=== PATIENT | female | born 1955 | race Caucasian/White ===

== ENCOUNTER 2024-03-11 14:42 | Observation (INO) ==
--- NOTE | 2024-03-11 15:07 | DR.AMS ---
HPI Time Seen Time Seen by Provider: 03/11/24 15:02 PCP Primary Care Physician: Terry Complaint Cheif Complaint Doctors Comments: 60-year-old female sent in by EMS for evaluation. Family told EMS that he has been falling a lot, has been confused recently. Patient is pleasant, in no distress. She does recall falling, has bruising and pain of her right hip/thigh region. Denies headache, visual changes, sinus congestion or sore throat. Denies head injury, neck pain or back pain. Has had a slight cough, nonproductive.. No reported fevers or chills.. She denies nausea, vomiting, abdominal pain, constipation, diarrhea or urinary issues. Right lower extremity has been a bit swollen. Patient does not know why she falls. Patient is on chronic narcotic therapy, recently had her strength increased from 7.5 to 10 mg of hydrocodone. Chief Complaint:: Patient's family called EMS due to the patient falling and being disoriented. The patient states that she is here due to falling, and is noted to be slurring during the triage. She states that she hurts on her right side and rates the pain a 10/10. The patient also states that she has been falling frequently at home recently. COVID-19 Coronavirus risk:travel/contact w/high risk person: No Has patient experienced Coronavirus symptoms: No Reviewed Nurses Notes Reviewed: Yes Source History Provided: Patient and EMS Mode of Arrival Mode of Arrival: Stretcher Timing Onset of Chief Complaint: 03/11/24 PMH PMH Past Medical History: Yes Past Medical History: Anxiety, COPD, Depression, Diabetes and Hypertension Past Surgical History: Yes Surgical History: Ortho Surgery and Other Past Surgical History Comment: Spinal surger Family History History of Family Medical Conditions: Yes Family Medical History: Diabetes Mellitus, Cancer, [place], Heart Failure and Hypertension Social History Does patient currently use any type of tobacco product: Yes Have you used tobacco products in the last 12 months: Yes Type of Tobacco Use: Cigarettes Does any household member use tobacco: Yes Alcohol Use: None Do you use any recreational Drugs:: No Lives With: Family Lives Where: Home Travel Risk Coronavirus risk:travel/contact w/high risk person: No Has patient experienced Coronavirus symptoms: No Infectious screening In the last 2 months have you had wt loss of >10#?: NO Have you had fever, night sweats or hemotysis?: No Have you traveled outside the country in the last 6 months?: No Isolation: Standard ROS Review of Systems Constitutional: Weakness Eyes: No Symptoms Reported ENTM: No Symptoms Reported Respiratoy: Non-Productive Cough Cardiovascular: No Symptoms Reported Gastrointestinal/Abdominal: No Symptoms Reported Genitourinary: No Symptoms Reported Neurological: Weakness Musculoskeletal: Hip (Right) Integumentary: No Symptoms Reported Hematologic/Lymphatic: No Symptoms Reported Psychiatric: No Symptoms Reported All Other Systems: Reviewed and Negative PE Vitals Vital Signs: Temp Pulse Resp BP Pulse Ox O2 Del Method 03/11/24 15:15 52 L 92 L 03/11/24 15:01 146/65 03/11/24 15:01 53 L 96 03/11/24 15:00 51 L 98 03/11/24 14:49 55 L 96 03/11/24 14:49 157/72 03/11/24 14:49 157/72 03/11/24 14:46 56 L 93 L 03/11/24 14:52 98.2 F 52 L 18 157/72 96 Room Air General General Appearance: Alert and In No Apparent Distress Head Head Exam: Normal Inspection, Atraumatic and Normocephalic Eyes Eye exam: PERRL and EOMI ENT ENT Exam: Normal Oropharynx and Mucous Membranes Moist Neck Neck Exam: Normal Inspection and Full ROM; negative Tenderness Respiratory Respiratory Exam: Normal Lung Sounds Bilat; negative Accessory Muscle Use or Respiratory Distress Cardiovascular Cardiovascular Exam: Regular Rate, Normal Rhythm and Normal Heart Sounds Abdominal Exam Abdominal Exam: Normal Bowel Sounds and Soft; negative Tenderness Extremities Extremities Exam: Edema (RLE - 3+, LLE - 1-2+) Neurological Neurological Exam: Alert and CN II-XII Intact; negative Motor Sensory Deficit Psychological Psychiatric Exam: Normal Affect Skin Skin Exam: Warm, Dry and Other (+ ecchymoses of R hip/posterior lateral R proximal thigh) COURSE Treatment Treatment: 60-year-old female with frequent falls and increased confusion over the past several days. Workup initiated. Patient given IV fluids. 1622 -labs show patient to have UTI on urinalysis, has 30-50 white blood cells per high- power field, positive for nitrites and leukocyte Estrace. Patient given IV Rocephin. Imaging studies unremarkable-no acute abnormalities on brain CT, chest x-ray or right hip x-ray. Has degree of anemia, 7.2 hemoglobin. Rest the chemistries are acceptable. Negative troponin, negative CK. Discussed with her primary care provider, Dr. Johnson, he accepts observation admission for treatment of acute UTI and observation of her mental status changes. ROR Labs Reviewed Laboratory Results Reviewed?: Yes 03/11/24 15:30 03/11/24 15:30 Laboratory: WBC 8.4 X10^3/uL (3.6-10.0) 03/11/24 15:30 RBC 2.95 X10^6/uL (3.5-5.4) L 03/11/24 15:30 Hgb 7.2 g/dL (12.0-16.0) L 03/11/24 15: Hct 23.4 % (36.0-47.0) L 03/11/24 15:30 MCV 79.4 fL (80.0-100.0) L 03/11/24 15:30 MCH 24.5 pg (27.0-34.0) L 03/11/24 15: MCHC 30.9 g/dL (33.0-35.0) L 03/11/24 15:30 RDW 19.0 % (11.6-16.5) H 03/11/24 15:30 Plt Count 268 X10^3/uL (150.0-450.0) 03/11/24 15:30 MPV 7.8 fL (7.4-11.0) 03/11/24 15:30 Neut % (Auto) 44.0 % (42.0-75.0) 03/11/24 15:30 Lymph % (Auto) 34.8 % (21.0-51.0) 03/11/24 15:30 [place] % (Auto) 9.5 % (0.0-13.0) 03/11/24 15:30 Eos % (Auto) 10.9 % (0.9-2.9) H 03/11/24 15:30 Baso % (Auto) 0.8 % (0.2-1.0) 03/11/24 15:30 Neut # (Auto) 3.7 x10^3/uL (2.2-4.8) 03/11/24 15:30 Lymph # (Auto) 2.9 X10^3/uL (1.3-2.9) 03/11/24 15:30 [place] # (Auto) 0.8 x10^3/uL (0.3-0.8) 03/11/24 15:30 Eos # (Auto) 0.9 x10^3/uL (0.0-0.2) H 03/11/24 15:30 Baso # (Auto) 0.1 X10^3/uL (0.0-0.1) 03/11/24 15:30 Absolute Nucleated RBC 0.0 /100WBC 03/11/24 15:30 Sodium 140 mmol/L (136-145) 03/11/24 15:30 Corrected Sodium TNP 03/11/24 15:30 Potassium 3.7 mmol/L (3.5-5.1) 03/11/24 15:30 Chloride 105 mmol/L (98-107) 03/11/24 15:30 Carbon Dioxide 33.2 mmol/L (21-32) H 03/11/24 15:30 BUN 27 mg/dL (7-18) H 03/11/24 15:30 Creatinine 1.41 mg/dL (0.55-1.02) H 03/11/24 15:30 Est GFR (MDRD) Af Amer 48 (>60) L 03/11/24 15:30 Est GFR (MDRD) Non-Af 39 (>60) L 03/11/24 15:30 Glucose 76 mg/dL (65-99) 03/11/24 15:30 Calcium 8.1 mg/dL (8.5-10.1) L 03/11/24 15:30 Corrected Calcium 9.4 mg/dL (8.5-10.1) 03/11/24 15:30 Total Bilirubin 0.20 mg/dL (0.2-1.0) 03/11/24 15:30 AST 23 Units/L (15-37) 03/11/24 15:30 ALT 19 Units/L (12-78) 03/11/24 15:30 Alkaline Phosphatase 106 Units/L (46-116) 03/11/24 15:30 Creatine Kinase 101 Units/L (26-192) 03/11/24 15:30 Troponin I High Sens 12.8 ng/L (4.0-60.0) 03/11/24 15: Total Protein 6.4 g/dL (6.4-8.2) 03/11/24 15: Albumin 2.4 g/dL (3.4-5.0) L 03/11/24 15: Globulin 4.0 g/dL (2.5-4.5) 03/11/24 15: Albumin/Globulin Ratio 0.6 Ratio (1.1-2.1) L 03/11/24:30 Lipase 24 Units/L (16-77) 03/11/24 15: TSH 3rd Generation 1.827 uIU/mL (0.358-3.74) 03/11/24 15: Specimen Type Catherized urine 03/11/24: Urine Color Yellow (YELLOW) 03/11/24 15: Urine Appearance Hazy (CLEAR) 03/11/24: Urine pH 6.0 (5.0 - 8.0) 03/11/24: Ur Specific [place] 1.015 (1.000-1.030) 03/11/24 15: Urine Protein 2+ (NEGATIVE) 03/11/24: Urine Glucose (UA) Negative (NEGATIVE) 03/11/24: Urine Ketones Negative (NEGATIVE) 03/11/24: Urine Blood 1+ (NEGATIVE) 03/11/24: Urine Nitrite Positive (NEGATIVE) 03/11/24: Urine Bilirubin Negative (NEGATIVE) 03/11/24: Urine Urobilinogen Normal (NORMAL) 03/11/24: Ur Leukocyte Esterase 1+ (NEGATIVE) 03/11/24: Urine RBC 3-5 /HPF (0-3) A 03/11/24 15: Urine WBC 30-50 /HPF (0-5) A 03/11/24: Ur Squamous Epith Cells Few /HPF (NEGATIVE) 03/11/24: Urine Bacteria 3+ /HPF (NEGATIVE) 03/11/24: Ur Culture Indicated? Yes/culture set up 03/11/24: Urine Opiates Screen Positive (NEG=<300) A 03/11/24: Urine Methadone Screen Negative (NEG=<300) 03/11/24 15:29 Ur Barbiturates Screen Negative (NEG=<200) 03/11/24 15:29 Ur Phencyclidine Scrn Negative (NEG=<25) 03/11/24 15:29 Ur Amphetamines Screen Negative (NEG=<1000) 03/11/24 15:29 U Benzodiazepines Scrn Negative (NEG=<200) 03/11/24 15:29 Urine Cocaine Screen Negative (NEG=<300) 03/11/24 15:29 U Marijuana (THC) Screen Negative (NEG=<50) 03/11/24 15:29 + anemia, + UTI XRAY XRAY Interpreted by: Both X-ray Results: EXAM: HIP, RIGHT HISTORY: FALL, PAIN; COMPARISON: Prior study or studies were utilized for comparison with the most relevant dated 09/05/2022 TECHNIQUE: 3 view(s) FINDINGS: The pelvic rings are intact. The pubic symphysis is not widened. The SI joints are atraumatic. Visualized portions of the pelvic bones and proximal femurs are intact. No hip dislocation noted. No significant degenerative change. Soft tissues are unremarkable. IMPRESSION: 1. No acute fracture or dislocation THIS IS AN ELECTRONICALLY VERIFIED FINAL REPORT 03/11/2024 4:16 PM - Electronically signed by Rene Cueva MD EXAM: CHEST, 1 VIEW HISTORY: AMS; COMPARISON: No relevant prior studies were available for comparison at the time of interpretation. TECHNIQUE: CHEST, 1 VIEW FINDINGS: Chest: Lines and tubes: Cardiac leads overlie the chest. Mediastinum: Cardiomegaly. Pulmonary vessels: There is pulmonary vascular congestion. Lung elmore: No suspicious airspace opacity. Pleura: No effusion. No pneumothorax. Bones and soft tissues: No acute osseous or soft tissue abnormality. IMPRESSION: 1. No acute cardiopulmonary abnormality THIS IS AN ELECTRONICALLY VERIFIED FINAL REPORT 03/11/2024 4:12 PM - Electronically signed by Rene Cueva MD EXAM: BRAIN W/O CON HISTORY: AMS; COMPARISON: 12/29/2023 TECHNIQUE: Multiple axial images of the head were performed from the skullbase to the vertex using standard departmental protocol. Sagittal and coronal reformatted images were performed. Dose reduction techniques including Automated Exposure Control (AEC) and adjustment of mA and kV were utilized. FINDINGS: The sulci, cisterns and ventricles are age appropriate. Mild cortical atrophy compatible with patient's age. There is no evidence of acute territorial infarction, hemorrhage, mass, mass effect or midline shift. There are no abnormal intra-axial or extra-axial fluid collections. The visualized paranasal sinuses and mastoid air cells are predominantly clear. IMPRESSION: Mild cortical atrophy. No acute intracranial pathology THIS IS AN ELECTRONICALLY VERIFIED FINAL REPORT 03/11/2024 4:12 PM - Electronically signed by Christopher Breen MD Opioid Opioid Risk Tool Age (Randal box if 16-45): No History of Preadolescent Sexual Abuse: No Total: 0 Total Score Risk Category: Low Risk Copyright: [facility] predicting aberrant behaviors Discharge Plan Diagnosis Discharge Problem: Acute UTI, Altered mental status Discharge Plan Patient Disposition: ADMITTED INPATIENT Condition: Stable Prescriptions: No Action metoprolol succinate 50 mg tablet extended release 24 hr 50 mg PO QDAY Qty: 90 3RF levothyroxine 50 mcg tablet 50 mcg PO QDAY Qty: 90 3RF isosorbide mononitrate 30 mg tablet extended release 24 hr 30 mg PO QAM Qty: 90 3RF colchicine 0.6 mg tablet 0.6 mg PO QDAY Qty: 90 3RF gabapentin 800 mg tablet 800 mg PO TID Qty: 90 3RF famotidine 20 mg tablet 20 mg PO QDAY Qty: 90 6RF ropinirole 2 mg tablet 2 mg PO QPM Qty: 90 3RF hydrocodone-acetaminophen 10-325 mg tablet 1 tab PO Q6H MDD 4 tablets per 24 hours PRN (Reason: pain) 30 Days Qty: 120 0RF Rx Instructions: 120 tablets filled on 02/25/24 - 55 tablets noted in bottle cyclobenzaprine 10 mg tablet 10 mg PO QPM Qty: 30 11RF potassium chloride 10 mEq tablet extended release 10 meq PO QAM Qty: 90 11RF pantoprazole 40 mg tablet,delayed release (DR/EC) 40 mg PO QDAY Qty: 90 3RF losartan-hydrochlorothiazide 50-12.5 mg tablet 1 tab PO QDAY Qty: 30 3RF clonazepam 1 mg tablet 1 mg PO BID MDD 2 per 24 hours 30 Days Qty: 60 0RF fluoxetine 40 mg capsule 40 mg PO QDAY Qty: 90 3RF aspirin 81 mg tablet,chewable 81 mg PO QDAY Qty: 90 3RF solifenacin 5 mg tablet 5 mg PO QDAY Qty: 100 2RF glipizide 5 mg tablet 5 mg PO BID Qty: 180 11RF atorvastatin 20 mg tablet 20 mg PO QPM Qty: 90 3RF hydrochlorothiazide 25 mg tablet 25 mg PO QDAY insulin glargine [Lantus Solostar U-100 Insulin] 100 unit/mL (3 mL) insulin pen 20 unit SUBCUT QDAY Combivent Respimat 20-100 mcg/actuation mist 1 puff INHALATION QID Trelegy Ellipta 100-62.5-25 mcg blister with device 1 ea INHALATION QDAY allopurinol 100 mg tablet 100 mg PO DAILY Health Concerns: Post Hospitalization: new medications and changes needed to prevent readmission or further decline. Pt educated and given instructions on all concerns. Plan of Treatment: Continue with present treatment and follow up plan. Pt is to keep follow up appointment as instructed and take medications as ordered. Orders to Discharge Patient Discharge Orders: Transfer (Routine); Ordered 03/11/24 Ordered By: Sunil Cruz Follow ups/Referrals Follow ups/Referrals: Lester Stewart [Primary Care Provider] - 3 days
[2024-03-11] MEDS: NS 500 ML IV 500 ML IV ONE ×2 (15:17→17:43)
[2024-03-11 15:47] LABS: BASOPHILS # (AUTO) 0.1 X10^3/uL (0.0-0.1); BASOPHILS % (AUTO) 0.8 % (0.2-1.0); EOSINOPHILS # (AUTO) 0.9 x10^3/uL (0.0-0.2); EOSINOPHILS % (AUTO) 10.9 % (0.9-2.9); HEMATOCRIT 23.4 % (36.0-47.0); HEMOGLOBIN 7.2 g/dL (12.0-16.0); LYMPHOCYTES # (AUTO) 2.9 X10^3/uL (1.3-2.9); LYMPHOCYTES % (AUTO) 34.8 % (21.0-51.0); MEAN CORPUSCULAR HEMOGLOBIN 24.5 pg (27.0-34.0); MEAN CORPUSCULAR HGB CONC 30.9 g/dL (33.0-35.0); MEAN CORPUSCULAR VOLUME 79.4 fL (80.0-100.0); MEAN PLATELET VOLUME 7.8 fL (7.4-11.0); MONOCYTES # (AUTO) 0.8 x10^3/uL (0.3-0.8); MONOCYTES % (AUTO) 9.5 % (0.0-13.0); NEUTROPHILS # (AUTO) 3.7 x10^3/uL (2.2-4.8); PLATELET COUNT 268 X10^3/uL (150.0-450.0); RED BLOOD COUNT 2.95 X10^6/uL (3.5-5.4); WHITE BLOOD COUNT 8.4 X10^3/uL (3.6-10.0)
[2024-03-11 16:04] LABS: BILIRUBIN,URINE NEGATIVE (NEGATIVE); BLOOD/HEMOGLOBIN,URINE 1+ (NEGATIVE); GLUCOSE, URINE NEGATIVE (NEGATIVE); KETONES,URINE NEGATIVE (NEGATIVE); LEUKOCYTE ESTERASE ,URINE 1+ (NEGATIVE); NITRITES,URINE POSITIVE (NEGATIVE); PROTEIN,URINE 2+ (NEGATIVE); UROBILINOGEN,URINE NORMAL (NORMAL)
[2024-03-11 16:05] LABS: ALANINE AMINOTRANSFERASE 19 Units/L (12-78); ALBUMIN 2.4 g/dL (3.4-5.0); ALKALINE PHOSPHATASE 106 Units/L (46-116); ASPARTATE AMINO TRANSFERASE 23 Units/L (15-37); BLOOD UREA NITROGEN 27 mg/dL (7-18); CALCIUM 8.1 mg/dL (8.5-10.1); CARBON DIOXIDE 33.2 mmol/L (21-32); CHLORIDE 105 mmol/L (98-107); COR CA(FOR HYPOALB) 9.4 mg/dL (8.5-10.1); CREATINE KINASE 101 Units/L (26-192); CREATININE 1.41 mg/dL (0.55-1.02); GLUCOSE 76 mg/dL (65-99); LIPASE 24 Units/L (16-77); POTASSIUM 3.7 mmol/L (3.5-5.1); SODIUM 140 mmol/L (136-145); TOTAL PROTEIN 6.4 g/dL (6.4-8.2); TSH (3RD GENERATION) 1.827 uIU/mL (0.358-3.74); eGFR NON BLACK RACES 39 (>60)
--- NOTE | 2024-03-11 16:15 | RAD ---
EXAM: CHEST, 1 VIEW HISTORY: AMS; COMPARISON: No relevant prior studies were available for comparison at the time of interpretation. TECHNIQUE: CHEST, 1 VIEW FINDINGS: Chest: Lines and tubes: Cardiac leads overlie the chest. Mediastinum: Cardiomegaly. Pulmonary vessels: There is pulmonary vascular congestion. Lung elmore: No suspicious airspace opacity. Pleura: No effusion. No pneumothorax. Bones and soft tissues: No acute osseous or soft tissue abnormality. IMPRESSION: 1. No acute cardiopulmonary abnormality THIS IS AN ELECTRONICALLY VERIFIED FINAL REPORT 03/11/2024 4:12 PM - Electronically signed by Rene Cueva MD
--- NOTE | 2024-03-11 16:15 | CT ---
EXAM: BRAIN W/O CON HISTORY: AMS; COMPARISON: 12/29/2023 TECHNIQUE: Multiple axial images of the head were performed from the skullbase to the vertex using standard depa rtmental protocol. Sagittal and coronal reformatted images were performed. Dose reduction techniques including Automated Exposure Control (AEC) and adjustment of mA and kV were utilized. FINDINGS: The sulci, cisterns and ventricles are age appropriate. Mild cortical atrophy compatible with patien t's age. There is no evidence of acute territorial infarction, hemorrhage, mass, mass effect or midl ine shift. There are no abnormal intra-axial or extra-axial fluid collections. The visualized paranas al sinuses and mastoid air cells are predominantly clear. IMPRESSION: Mild cortical atrophy. No acute intracranial pathology THIS IS AN ELECTRONICALLY VERIFIED FINAL REPORT 03/11/2024 4:12 PM - Electronically signed by Christopher Breen MD
[2024-03-11 16:19] LABS: APPEARANCE,URINE HAZY (CLEAR); BACTERIA,URINE 3+ /HPF (NEGATIVE); COLOR,URINE YELLOW (YELLOW); SQUAMOUS EPITHELIAL CELL,UR FEW /HPF (NEGATIVE)
--- NOTE | 2024-03-11 16:20 | RAD ---
EXAM: HIP, RIGHT HISTORY: FALL, PAIN; COMPARISON: Prior study or studies were utilized for comparison with the most relevant dated 09/05/2022 TECHNIQUE: 3 view(s) FINDINGS: The pelvic rings are intact. The pubic symphysis is not widened. The SI joints are atraumatic. Visual ized portions of the pelvic bones and proximal femurs are intact. No hip dislocation noted. No signif icant degenerative change. Soft tissues are unremarkable. IMPRESSION: 1. No acute fracture or dislocation THIS IS AN ELECTRONICALLY VERIFIED FINAL REPORT 03/11/2024 4:16 PM - Electronically signed by Rene Cueva MD
[2024-03-11] MEDS: ROCEPHIN VIAL 1 GRAM IVP ONE (16:28)
[2024-03-11] MEDS ORDERED: PATIENT'S HOME MEDICATION (Ipratropium-Albuterol [Combivent Respimat] 20-100 mcg/actuation IN SCH (17:17)
[2024-03-11] MEDS: ROCEPHIN VIAL 1 GRAM ONE (17:43)
[2024-03-11] MEDS: CONSULT PHARMACY - POTASSIUM & MAGNESIUM XX SCH (17:44)
[2024-03-11] MEDS: ROCEPHIN VIAL 1 GRAM 1 G in NS 100 ML IV 100 ML IV SCH (17:44)
[2024-03-11 18:32] VITALS: BMI 50.8
[2024-03-11] MEDS ORDERED: PULMICORT NEB TX 0.5 MG NEB ONE (19:56)
[2024-03-11] MEDS ORDERED: DUONEB 0.5 MG/3 MG (3 mL) NEB ONE (19:56)
[2024-03-11] MEDS: LIPITOR TAB 20 MG PO SCH (20:31)
[2024-03-11] MEDS: KLOR-CON PO SCH (20:31)
[2024-03-11] MEDS: SNACK - Diabetic Appropriate PO SCH (20:31)
[2024-03-11] MEDS: DUONEB 0.5 MG/3 MG (3 mL) NEB SCH (20:49)
[2024-03-11] MEDS: PULMICORT NEB TX 0.5 MG NEB SCH (20:49)
[2024-03-11] MEDS ORDERED: ROPINIROLE 2 MG PO SCH (21:00)
[2024-03-11] MEDS: FLEXERIL TAB 10 MG PO SCH (21:16)
[2024-03-11] MEDS: REQUIP PO SCH (21:16)
[2024-03-11] MEDS: NEURONTIN CAP 400 MG PO SCH (21:21)
[2024-03-11] MEDS: MAG-OX TAB PO SCH (21:21)
[2024-03-11] MEDS: KLONOPIN TAB 1 MG PO SCH (21:52)
[2024-03-11] MEDS ORDERED: PATIENT'S HOME MEDICATION (Gabapentin 800 mg tablet) PO SCH (22:00)
[2024-03-12 06:15] LABS: ALANINE AMINOTRANSFERASE 18 Units/L (12-78); ALBUMIN 2.3 g/dL (3.4-5.0); ALKALINE PHOSPHATASE 104 Units/L (46-116); ASPARTATE AMINO TRANSFERASE 21 Units/L (15-37); BLOOD UREA NITROGEN 23 mg/dL (7-18); CALCIUM 7.9 mg/dL (8.5-10.1); CARBON DIOXIDE 32.6 mmol/L (21-32); CHLORIDE 106 mmol/L (98-107); COR CA(FOR HYPOALB) 9.3 mg/dL (8.5-10.1); CREATININE 1.19 mg/dL (0.55-1.02); GLUCOSE 94 mg/dL (65-99); POTASSIUM 4.1 mmol/L (3.5-5.1); SODIUM 144 mmol/L (136-145); TOTAL PROTEIN 6.2 g/dL (6.4-8.2); eGFR NON BLACK RACES 48 (>60)
[2024-03-12 06:17] LABS: PLATELET COUNT 239 X10^3/uL (150.0-450.0)
[2024-03-12 06:22] LABS: BASOPHILS # (AUTO) 0.1 X10^3/uL (0.0-0.1); BASOPHILS % (AUTO) 0.9 % (0.2-1.0); EOSINOPHILS # (AUTO) 0.8 x10^3/uL (0.0-0.2); EOSINOPHILS % (AUTO) 11.6 % (0.9-2.9); HEMATOCRIT 22.7 % (36.0-47.0); HEMOGLOBIN 7.2 g/dL (12.0-16.0); LYMPHOCYTES # (AUTO) 2.5 X10^3/uL (1.3-2.9); LYMPHOCYTES % (AUTO) 35.9 % (21.0-51.0); MEAN CORPUSCULAR HGB CONC 31.5 g/dL (33.0-35.0); MEAN CORPUSCULAR VOLUME 79.4 fL (80.0-100.0); MEAN PLATELET VOLUME 8.2 fL (7.4-11.0); MONOCYTES # (AUTO) 0.5 x10^3/uL (0.3-0.8); MONOCYTES % (AUTO) 7.2 % (0.0-13.0); NEUTROPHILS # (AUTO) 3.1 x10^3/uL (2.2-4.8); NEUTROPHILS % (AUTO) 44.4 % (42.0-75.0); RED BLOOD COUNT 2.86 X10^6/uL (3.5-5.4); RED CELL DISTRIBUTION WIDTH 19.3 % (11.6-16.5); WHITE BLOOD COUNT 7.1 X10^3/uL (3.6-10.0)
[2024-03-12] MEDS: GLUCOTROL PO SCH (06:39)
[2024-03-12] MEDS ORDERED: PATIENT'S HOME MEDICATION (Fluticasone-Umeclidin-Vilanter [Trelegy Ellipta] 100-62.5-25 mc IN SCH (09:00)
[2024-03-12] MEDS ORDERED: FLUOXETINE 40 MG PO SCH (09:00)
[2024-03-12] MEDS ORDERED: PATIENT'S HOME MEDICATION (Insulin Glargine [Lantus Solostar U-100 Insulin] 100 unit/mL (3 SUBCUT SCH (09:00)
[2024-03-12] MEDS ORDERED: PATIENT'S HOME MEDICATION (Solifenacin 5 mg tablet) PO SCH (09:00)
[2024-03-12] MEDS: COLCRYS TAB 0.6 MG PO SCH (09:32)
[2024-03-12] MEDS: MICRO K EXTEN CAP 10 MEQ PO SCH (09:32)
[2024-03-12] MEDS: HYZAAR 50/12.5 MG PO SCH (09:32)
[2024-03-12] MEDS: IMDUR PO SCH (09:32)
[2024-03-12] MEDS: TOPROL XL PO SCH (09:32)
[2024-03-12] MEDS: DETROL LA 2 MG CAP EXT REL PO SCH (09:33)
[2024-03-12] MEDS: HYDROCHLOROTHIAZIDE 25 MG TAB PO SCH (09:33)
[2024-03-12] MEDS: PEPCID TAB 20 MG PO SCH (09:33)
[2024-03-12] MEDS: SYNTHROID 50 mcg TAB PO SCH (09:33)
[2024-03-12] MEDS: ZYLOPRIM PO SCH (09:33)
[2024-03-12] MEDS: PROTONIX TAB 40 MG PO SCH (09:33)
[2024-03-12] MEDS: PROzac PO SCH (09:33)
[2024-03-12] MEDS: ASPIRIN 81 MG CHEWTAB PO SCH (09:33)
[2024-03-12] MEDS: LANTUS SC SCH (09:34)
[2024-03-12] MEDS: NS 250 ML IV 250 ML IV ONE (10:43)
--- NOTE | 2024-03-12 15:58 | DR.H&P ---
H&P History & Physical for Day of: H&P Date: 03/12/24 Chief Complaint Chief Complaint: Confusion Allergies Allergies Allergy/AdvReac Type Severity Reaction Status Date / Time lisinopril Allergy Unknown Verified 06/06/23 09:24 Penicillins Allergy Unknown Verified 06/06/23 09:24 tramadol Allergy Unknown Verified 06/06/23 09:24 History of Present Illness History of Present Illness: This is a 68-year-old white female well-known to me. She was brought to the [facility] emergency department after being confused yesterday. I also report that she has been having increased numbers of falls as rolling of the bed and falling on the floor a lot. She has multiple bruises and on her right hip and thigh regions. This is from her falls that she has been having. She also complains of sore throat and sinus congestion. Her sister said that she was confused all day yesterday however according to the ER physician and nurses she is conversing and speaking without any bad confusion. Patient does take chronic narcotics for pain and the EMS reports that she was slurring some when they were taking her to the emergency department. The patient did appear little bit somnolent in the emergency department but this could be from excessive pain medication. Workup revealed that she was mildly dehydrated and had a small urinary tract infection. She was started on IV Rocephin and we admitted her to the floor for slow IV hydration and antibiotic treatment with Rocephin for UTI. Past Medical History Past Medical History: Anxiety, COPD, Depression, Diabetes and Hypertension Past Surgical History Surgical History: Ortho Surgery and Other Family History Family Medical History: Coronary Artery Disease Social History Does patient currently use any type of tobacco product: Yes Have you used tobacco products in the last 12 months: Yes Type of Tobacco Use: Cigarettes Does any household member use tobacco: Yes Alcohol Use: None Medications Home Medications: Home Medications Medication Instructions Recorded Confirmed Type allopurinol 100 mg tablet 100 mg PO DAILY 03/11/24 03/11/24 History fluticasone fur. 100 mcg-umeclid 1 ea inhalation QDAY 03/11/24 03/11/24 History 62.5 mcg-vilant 25 mcg inhalat.powder (Trelegy Ellipta) hydrochlorothiazide 25 mg tablet 25 mg PO QDAY 03/11/24 03/11/24 History insulin glargine 100 unit/mL (3 20 unit subcut QDAY 03/11/24 03/11/24 History mL) subcutaneous pen (Lantus Solostar U-100 Insulin) ipratropium 20 mcg-albuterol 100 1 puff inhalation QID 03/11/24 03/11/24 History mcg/actuation mist for inhalation (Combivent Respimat) Labs 03/12/24 05:07 03/12/24 05:07 Labs: 03/11/24 15:29 Urine,Catheterized Urine Culture - Preliminary Laboratory WBC 7.1 X10^3/uL (3.6-10.0) 03/12/24 05:07 RBC 2.86 X10^6/uL (3.5-5.4) L 03/12/24 05:07 Hgb 7.2 g/dL (12.0-16.0) L 03/12/24 05:07 Hct 22.7 % (36.0-47.0) L 03/12/24 05:07 MCV 79.4 fL (80.0-100.0) L 03/12/24 05:07 MCH 25.0 pg (27.0-34.0) L 03/12/24 05:07 MCHC 31.5 g/dL (33.0-35.0) L 03/12/24 05:07 RDW 19.3 % (11.6-16.5) H 03/12/24 05:07 Plt Count 239 X10^3/uL (150.0-450.0) 03/12/24 05:07 MPV 8.2 fL (7.4-11.0) 03/12/24 05:07 Neut % (Auto) 44.4 % (42.0-75.0) 03/12/24 05:07 Lymph % (Auto) 35.9 % (21.0-51.0) 03/12/24 05:07 [place] % (Auto) 7.2 % (0.0-13.0) 03/12/24 05:07 Eos % (Auto) 11.6 % (0.9-2.9) H 03/12/24 05:07 Baso % (Auto) 0.9 % (0.2-1.0) 03/12/24 05:07 Neut # (Auto) 3.1 x10^3/uL (2.2-4.8) 03/12/24 05:07 Lymph # (Auto) 2.5 X10^3/uL (1.3-2.9) 03/12/24 05:07 [place] # (Auto) 0.5 x10^3/uL (0.3-0.8) 03/12/24 05:07 Eos # (Auto) 0.8 x10^3/uL (0.0-0.2) H 03/12/24 05:07 Baso # (Auto) 0.1 X10^3/uL (0.0-0.1) 03/12/24 05:07 Absolute Nucleated RBC 0.1 /100WBC 03/12/24 05:07 Sodium 144 mmol/L (136-145) 03/12/24 05:07 Corrected Sodium TNP 03/12/24 05:07 Potassium 4.1 mmol/L (3.5-5.1) 03/12/24 05:07 Chloride 106 mmol/L (98-107) 03/12/24 05:07 Carbon Dioxide 32.6 mmol/L (21-32) H 03/12/24 05:07 BUN 23 mg/dL (7-18) H 03/12/24 05:07 Creatinine 1.19 mg/dL (0.55-1.02) H 03/12/24 05:07 Est GFR (MDRD) Af Amer 58 (>60) L 03/12/24 05:07 Est GFR (MDRD) Non-Af 48 (>60) L 03/12/24 05:07 Glucose 94 mg/dL (65-99) 03/12/24 05:07 POC Glucose (mg/dL) 112 mg/dL (65-99) H 03/12/24 12:31 Calcium 7.9 mg/dL (8.5-10.1) L 03/12/24 05:07 Corrected Calcium 9.3 mg/dL (8.5-10.1) 03/12/24 05:07 Magnesium 2.0 mg/dL (2.0-2.9) 03/12/24 05:07 Total Bilirubin 0.20 mg/dL (0.2-1.0) 03/12/24 05:07 AST 21 Units/L (15-37) 03/12/24 05:07 ALT 18 Units/L (12-78) 03/12/24 05:07 Alkaline Phosphatase 104 Units/L (46-116) 03/12/24 05:07 Creatine Kinase 101 Units/L (26-192) 03/11/24 15:30 Troponin I High Sens 12.8 ng/L (4.0-60.0) 03/11/24 15:30 Total Protein 6.2 g/dL (6.4-8.2) L 03/12/24 05:07 Albumin 2.3 g/dL (3.4-5.0) L 03/12/24 05:07 Globulin 3.9 g/dL (2.5-4.5) 03/12/24 05:07 Albumin/Globulin Ratio 0.6 Ratio (1.1-2.1) L 03/12/24 05:07 Lipase 24 Units/L (16-77) 03/11/24 15:30 TSH 3rd Generation 1.827 uIU/mL (0.358-3.74) 03/11/24 15:30 Specimen Type Catherized urine 03/11/24 15:29 Urine Color Yellow (YELLOW) 03/11/24 15: Urine Appearance Hazy (CLEAR) 03/11/24 15: Urine pH 6.0 (5.0 - 8.0) 03/11/24 15:29 Ur Specific [place] 1.015 (1.000-1.030) 03/11/24 15: Urine Protein 2+ (NEGATIVE) 03/11/24 15: Urine Glucose (UA) Negative (NEGATIVE) 03/11/24 15: Urine Ketones Negative (NEGATIVE) 03/11/24 15: Urine Blood 1+ (NEGATIVE) 03/11/24 15: Urine Nitrite Positive (NEGATIVE) 03/11/24 15: Urine Bilirubin Negative (NEGATIVE) 03/11/24 15: Urine Urobilinogen Normal (NORMAL) 03/11/24 15:29 Ur Leukocyte Esterase 1+ (NEGATIVE) 03/11/24 15: Urine RBC 3-5 /HPF (0-3) A 03/11/24 15: Urine WBC 30-50 /HPF (0-5) A 03/11/24 15: Ur Squamous Epith Cells Few /HPF (NEGATIVE) 03/11/24 15:29 Urine Bacteria 3+ /HPF (NEGATIVE) 03/11/24 15:29 Ur Culture Indicated? Yes/culture set up 03/11/24 15: Urine Opiates Screen Positive (NEG=<300) A 03/11/24 15: Urine Methadone Screen Negative (NEG=<300) 03/11/24 15: Ur Barbiturates Screen Negative (NEG=<200) 03/11/24 15: Ur Phencyclidine Scrn Negative (NEG=<25) 03/11/24 15: Ur Amphetamines Screen Negative (NEG=<1000) 03/11/24 15: U Benzodiazepines Scrn Negative (NEG=<200) 03/11/24: Urine Cocaine Screen Negative (NEG=<300) 03/11/24 15: U Marijuana (THC) Screen Negative (NEG=<50) 03/11/24 15:29 Review of Systems Constitutional: Weakness Eyes: No Symptoms Reported ENT: No Symptoms Reported Respiratory: No Symptoms Reported Cardiovascular: No Symptoms Reported Gastrointestinal: No Symptoms Reported Genitourinary: Frequency Musculoskeletal: No Symptoms Reported Skin: No Symptoms Reported Neurological: No Symptoms Reported Physical Exam Vital Signs: Vital Signs Temperature 98.2 F Temperature 97.1 F Pulse Rate [Right Brachial] 58 Pulse Rate [Right Brachial] 56 Pulse Rate 63 Pulse Rate 52 Respiratory Rate 18 Respiratory Rate 20 Blood Pressure [Right Arm] 169/74 Blood Pressure [Right Arm] 143/66 O2 Sat by Pulse Oximetry 95 O2 Sat by Pulse Oximetry 95 O2 Sat by Pulse Oximetry 96 O2 Sat by Pulse Oximetry 94 Oriented: Normal, Time, Person and Place Eyes: Normal Ear: Normal Nose: Normal Throat: Normal Respiratory: Clear Throughout Cardiovascular: Normal : Normal Auscultation: Bowel Sounds: Normal Palpation: Normal Tenderness: Normal Skin: Normal Musculoskeletal: Normal Psychiatric: Normal Mood Description: Calm Affect: Normal Speech Pattern: Clear and Appropriate Assessment/Plan (1) Dehydration: Status: Acute Plan: Slow IV hydration. (2) Acute UTI: Status: Acute Plan: IV Rocephin. Follow-up with urine culture and sensitivity report when available. Change antibiotics accordingly if needed. (3) Altered mental status: Status: Acute Plan: Monitor for improvement with IV hydration and treatment of the urinary tract infection. CT of the head was negative. (4) Insulin dependent type 2 diabetes mellitus: Status: None Plan: Sliding scale regular insulin per protocol Review H&P Reviewed: Yes Patient was examined?: Yes
[2024-03-12] MEDS: NYSTATIN POWDER TOP SCH (21:27)
[2024-03-12] MEDS: NORCO 10/325 TAB PO PRN (23:20)
[2024-03-13 06:25] LABS: BASOPHILS # (AUTO) 0.1 X10^3/uL (0.0-0.1); BASOPHILS % (AUTO) 0.6 % (0.2-1.0); EOSINOPHILS # (AUTO) 0.8 x10^3/uL (0.0-0.2); EOSINOPHILS % (AUTO) 9.4 % (0.9-2.9); HEMATOCRIT 22.6 % (36.0-47.0); HEMOGLOBIN 7.1 g/dL (12.0-16.0); LYMPHOCYTES # (AUTO) 3.2 X10^3/uL (1.3-2.9); LYMPHOCYTES % (AUTO) 36.2 % (21.0-51.0); MEAN CORPUSCULAR HEMOGLOBIN 24.9 pg (27.0-34.0); MEAN CORPUSCULAR HGB CONC 31.3 g/dL (33.0-35.0); MEAN CORPUSCULAR VOLUME 79.5 fL (80.0-100.0); MEAN PLATELET VOLUME 8.3 fL (7.4-11.0); MONOCYTES # (AUTO) 0.5 x10^3/uL (0.3-0.8); MONOCYTES % (AUTO) 6.1 % (0.0-13.0); NEUTROPHILS # (AUTO) 4.2 x10^3/uL (2.2-4.8); NEUTROPHILS % (AUTO) 47.7 % (42.0-75.0); PLATELET COUNT 254 X10^3/uL (150.0-450.0); RED BLOOD COUNT 2.84 X10^6/uL (3.5-5.4); RED CELL DISTRIBUTION WIDTH 19.4 % (11.6-16.5); WHITE BLOOD COUNT 8.8 X10^3/uL (3.6-10.0)
[2024-03-13 06:26] LABS: ALANINE AMINOTRANSFERASE 21 Units/L (12-78); ALBUMIN 2.4 g/dL (3.4-5.0); ALKALINE PHOSPHATASE 107 Units/L (46-116); ASPARTATE AMINO TRANSFERASE 22 Units/L (15-37); BLOOD UREA NITROGEN 21 mg/dL (7-18); CARBON DIOXIDE 31.4 mmol/L (21-32); CHLORIDE 105 mmol/L (98-107); COR CA(FOR HYPOALB) 9.3 mg/dL (8.5-10.1); CREATININE 1.22 mg/dL (0.55-1.02); GLUCOSE 70 mg/dL (65-99); SODIUM 142 mmol/L (136-145); TOTAL PROTEIN 6.4 g/dL (6.4-8.2); eGFR NON BLACK RACES 47 (>60)
[2024-03-13] MEDS ORDERED: CONSULT PHARMACY - POTASSIUM & MAGNESIUM XX SCH (08:00)
[2024-03-13] MEDS: MAG-OX TAB PO ONE (10:51)
[2024-03-13] MEDS ORDERED: BENADRYL INJ 50 MG VIAL IVP ONE (13:18)
[2024-03-13] MEDS: TYLENOL 325 MG TAB PO PRN (13:30)
[2024-03-13] MEDS: TYLENOL 325 MG TAB PO ONE (13:30)
[2024-03-13] MEDS: BENADRYL INJ 50 MG VIAL IVP ONE (13:30)
[2024-03-13] MEDS: NICOTINE PATCH TD SCH (19:26)
[2024-03-13] MEDS: CHECK PATCH XX SCH (20:36)
[2024-03-13 21:29] LABS: HEMATOCRIT 28.4 % (36.0-47.0)
[2024-03-14] MEDS: NS 500 ML IV 500 ML IV ONE (01:18)
[2024-03-14 05:41] LABS: BASOPHILS % (AUTO) 0.6 % (0.2-1.0); EOSINOPHILS # (AUTO) 1.3 x10^3/uL (0.0-0.2); EOSINOPHILS % (AUTO) 16.3 % (0.9-2.9); HEMATOCRIT 26.2 % (36.0-47.0); HEMOGLOBIN 8.4 g/dL (12.0-16.0); LYMPHOCYTES # (AUTO) 1.8 X10^3/uL (1.3-2.9); LYMPHOCYTES % (AUTO) 22.3 % (21.0-51.0); MEAN CORPUSCULAR HEMOGLOBIN 25.6 pg (27.0-34.0); MEAN CORPUSCULAR HGB CONC 32.1 g/dL (33.0-35.0); MEAN CORPUSCULAR VOLUME 79.7 fL (80.0-100.0); MONOCYTES # (AUTO) 0.9 x10^3/uL (0.3-0.8); MONOCYTES % (AUTO) 10.4 % (0.0-13.0); NEUTROPHILS # (AUTO) 4.1 x10^3/uL (2.2-4.8); NEUTROPHILS % (AUTO) 50.4 % (42.0-75.0); PLATELET COUNT 227 X10^3/uL (150.0-450.0); RED BLOOD COUNT 3.28 X10^6/uL (3.5-5.4); RED CELL DISTRIBUTION WIDTH 18.8 % (11.6-16.5); WHITE BLOOD COUNT 8.2 X10^3/uL (3.6-10.0)
[2024-03-14 05:48] LABS: ALANINE AMINOTRANSFERASE 19 Units/L (12-78); ALBUMIN 2.4 g/dL (3.4-5.0); ALKALINE PHOSPHATASE 106 Units/L (46-116); ASPARTATE AMINO TRANSFERASE 20 Units/L (15-37); BLOOD UREA NITROGEN 20 mg/dL (7-18); CALCIUM 7.9 mg/dL (8.5-10.1); CARBON DIOXIDE 32.6 mmol/L (21-32); CHLORIDE 108 mmol/L (98-107); COR CA(FOR HYPOALB) 9.2 mg/dL (8.5-10.1); GLUCOSE 66 mg/dL (65-99); MAGNESIUM 2.1 mg/dL (2.0-2.9); POTASSIUM 4.7 mmol/L (3.5-5.1); SODIUM 143 mmol/L (136-145); TOTAL PROTEIN 6.2 g/dL (6.4-8.2); eGFR NON BLACK RACES 43 (>60)
--- NOTE | 2024-03-14 13:23 | PCM.PROG ---
Progress Note Progress Note for Day of Date of Exam: 03/13/24 Subjective Subjective: This morning the patient seems confused. I am asking her questions and she states that somebody else is in the room which has been talking to them with there is no one there. According to her sister she has been doing similar things at home. She does not appear acutely ill this morning but I do see that her hemoglobin is still low and is a little bit lower at 7.1. She has a UTI that is being treated as well. Today we will go ahead and give her 2 units of packed red blood cells and premedicated prior to infusion. We will plan on rechecking hemoglobin after the transfusion. Will follow-up with the urine culture and sensitivity when available and in the meantime continue her on IV Rocephin for her UTI. I will plan on keeping the patient in the hospital through the weekend to see if her altered mental status/hallucinations improve as we treat her urinary tract infection. Past Medical Family Social History Allergies: Allergies lisinopril Allergy (Unknown, Verified 06/06/23 09:24) Reason: Drug allergy Penicillins Allergy (Unknown, Verified 06/06/23 09:24) Reason: Drug allergy tramadol Allergy (Unknown, Verified 06/06/23 09:24) Reason: Drug allergy Review of Systems ROS: No change since H&P Vital Signs and I&O's Vital Signs: Vital Signs Temperature 97.6 F Temperature 97.9 F Pulse Rate [Right Brachial] 55 Pulse Rate [Right Brachial] 54 Respiratory Rate 20 Respiratory Rate 17 Respiratory Rate 17 Respiratory Rate 17 Blood Pressure [Left Arm] 144/70 Blood Pressure [Left Arm] 112/59 O2 Sat by Pulse Oximetry 99 O2 Sat by Pulse Oximetry 97 Intake and Output: Intake & Output 03/12/24 03/13/24 03/14/24 03/15/24 11:59 11:59 11:59 11:59 Intake Total 570 / 570 2079 1705 / 1705 Balance 570 / 570 2079 1705 / 1705 Physical Exam Oriented: Normal, Time, Person and Place Eyes: Normal Ear: Normal Nose: Normal Throat: Normal Respiratory: Normal Cardiovascular: Normal : Normal Auscultation: Bowel Sounds: Normal Tenderness: Normal Skin: Normal Musculoskeletal: Normal Psychiatric: Normal Mood Description: Calm Affect: Normal Speech Pattern: Clear and Appropriate Laboratory and Diagnostics 03/14/24 05:10 03/14/24 05:10 Labs: 03/11/24 15:29 Urine,Catheterized Urine Culture - Final Escherichia Coli Laboratory WBC 8.2 X10^3/uL (3.6-10.0) 03/14/24 05:10 RBC 3.28 X10^6/uL (3.5-5.4) L 03/14/24 05:10 Hgb 8.4 g/dL (12.0-16.0) L 03/14/24 05:10 Hct 26.2 % (36.0-47.0) L 03/14/24 05:10 MCV 79.7 fL (80.0-100.0) L 03/14/24 05:10 MCH 25.6 pg (27.0-34.0) L 03/14/24 05:10 MCHC 32.1 g/dL (33.0-35.0) L 03/14/24 05:10 RDW 18.8 % (11.6-16.5) H 03/14/24 05:10 Plt Count 227 X10^3/uL (150.0-450.0) 03/14/24 05:10 MPV 8.0 fL (7.4-11.0) 03/14/24 05:10 Neut % (Auto) 50.4 % (42.0-75.0) 03/14/24 05:10 Lymph % (Auto) 22.3 % (21.0-51.0) 03/14/24 05:10 [place] % (Auto) 10.4 % (0.0-13.0) 03/14/24 05:10 Eos % (Auto) 16.3 % (0.9-2.9) H 03/14/24 05:10 Baso % (Auto) 0.6 % (0.2-1.0) 03/14/24 05:10 Neut # (Auto) 4.1 x10^3/uL (2.2-4.8) 03/14/24 05:10 Lymph # (Auto) 1.8 X10^3/uL (1.3-2.9) 03/14/24 05:10 [place] # (Auto) 0.9 x10^3/uL (0.3-0.8) H 03/14/24 05:10 Eos # (Auto) 1.3 x10^3/uL (0.0-0.2) H 03/14/24 05:10 Baso # (Auto) 0.0 X10^3/uL (0.0-0.1) 03/14/24 05:10 Absolute Nucleated RBC 0.0 /100WBC 03/14/24 05:10 Sodium 143 mmol/L (136-145) 03/14/24 05:10 Corrected Sodium TNP 03/14/24 05:10 Potassium 4.7 mmol/L (3.5-5.1) 03/14/24 05:10 Chloride 108 mmol/L (98-107) H 03/14/24 05:10 Carbon Dioxide 32.6 mmol/L (21-32) H 03/14/24 05:10 BUN 20 mg/dL (7-18) H 03/14/24 05:10 Creatinine 1.30 mg/dL (0.55-1.02) H 03/14/24 05:10 Est GFR (MDRD) Af Amer 52 (>60) L 03/14/24 05:10 Est GFR (MDRD) Non-Af 43 (>60) L 03/14/24 05:10 Glucose 66 mg/dL (65-99) 03/14/24 05:10 POC Glucose (mg/dL) 82 mg/dL (65-99) 03/14/24 11:12 Calcium 7.9 mg/dL (8.5-10.1) L 03/14/24 05:10 Corrected Calcium 9.2 mg/dL (8.5-10.1) 03/14/24 05:10 Magnesium 2.1 mg/dL (2.0-2.9) 03/14/24 05:10 Total Bilirubin 0.40 mg/dL (0.2-1.0) 03/14/24 05:10 AST 20 Units/L (15-37) 03/14/24 05:10 ALT 19 Units/L (12-78) 03/14/24 05:10 Alkaline Phosphatase 106 Units/L (46-116) 03/14/24 05:10 Creatine Kinase 101 Units/L (26-192) 03/11/24 15:30 Troponin I High Sens 12.8 ng/L (4.0-60.0) 03/11/24 15: Total Protein 6.2 g/dL (6.4-8.2) L 03/14/24 05:10 Albumin 2.4 g/dL (3.4-5.0) L 03/14/24 05:10 Globulin 3.8 g/dL (2.5-4.5) 03/14/24 05:10 Albumin/Globulin Ratio 0.6 Ratio (1.1-2.1) L 03/14/24 05:10 Lipase 24 Units/L (16-77) 03/11/24 15: TSH 3rd Generation 1.827 uIU/mL (0.358-3.74) 03/11/24 15: Specimen Type Catherized urine 03/11/24 15: Urine Color Yellow (YELLOW) 03/11/24 15: Urine Appearance Hazy (CLEAR) 03/11/24 15: Urine pH 6.0 (5.0 - 8.0) 03/11/24: Ur Specific [place] 1.015 (1.000-1.030) 03/11/24 15: Urine Protein 2+ (NEGATIVE) 03/11/24: Urine Glucose (UA) Negative (NEGATIVE) 03/11/24: Urine Ketones Negative (NEGATIVE) 03/11/24: Urine Blood 1+ (NEGATIVE) 03/11/24: Urine Nitrite Positive (NEGATIVE) 03/11/24: Urine Bilirubin Negative (NEGATIVE) 03/11/24: Urine Urobilinogen Normal (NORMAL) 03/11/24: Ur Leukocyte Esterase 1+ (NEGATIVE) 03/11/24 15: Urine RBC 3-5 /HPF (0-3) A 03/11/24 15: Urine WBC 30-50 /HPF (0-5) A 03/11/24: Ur Squamous Epith Cells Few /HPF (NEGATIVE) 03/11/24: Urine Bacteria 3+ /HPF (NEGATIVE) 03/11/24: Ur Culture Indicated? Yes/culture set up 03/11/24 15: Urine Opiates Screen Positive (NEG=<300) A 03/11/24 15: Urine Methadone Screen Negative (NEG=<300) 03/11/24 15:29 Ur Barbiturates Screen Negative (NEG=<200) 03/11/24 15: Ur Phencyclidine Scrn Negative (NEG=<25) 03/11/24 15: Ur Amphetamines Screen Negative (NEG=<1000) 03/11/24 15: U Benzodiazepines Scrn Negative (NEG=<200) 03/11/24 15: Urine Cocaine Screen Negative (NEG=<300) 03/11/24 15: U Marijuana (THC) Screen Negative (NEG=<50) 03/11/24 15: Blood Type A POSITIVE 03/13/24 08:50 Antibody Screen Negative 03/13/24 08:50 Crossmatch See Detail 03/13/24 08:50 Plan (1) Dehydration: Status: Acute Plan: Slow IV hydration. (2) Acute UTI: Status: Acute Plan: IV Rocephin. Follow-up with urine culture and sensitivity report when available. Change antibiotics accordingly if needed. (3) Altered mental status: Status: Acute Plan: Monitor for improvement with IV hydration and treatment of the urinary tract infection. CT of the head was negative. (4) Insulin dependent type 2 diabetes mellitus: Status: None Plan: Sliding scale regular insulin per protocol (5) Anemia: Status: Acute Plan: Transfused 2 units of packed red blood cells today. Check hemoglobin after transfusion. Premedicate patient with Benadryl and Tylenol to prevent transfusion reaction prior to transfusion.
[2024-03-15 06:37] LABS: BASOPHILS # (AUTO) 0.1 X10^3/uL (0.0-0.1); BASOPHILS % (AUTO) 1.2 % (0.2-1.0); EOSINOPHILS # (AUTO) 1.7 x10^3/uL (0.0-0.2); EOSINOPHILS % (AUTO) 18.6 % (0.9-2.9); HEMATOCRIT 30.1 % (36.0-47.0); HEMOGLOBIN 9.5 g/dL (12.0-16.0); LYMPHOCYTES # (AUTO) 2.2 X10^3/uL (1.3-2.9); LYMPHOCYTES % (AUTO) 23.9 % (21.0-51.0); MEAN CORPUSCULAR HEMOGLOBIN 25.4 pg (27.0-34.0); MEAN CORPUSCULAR HGB CONC 31.7 g/dL (33.0-35.0); MEAN CORPUSCULAR VOLUME 80.1 fL (80.0-100.0); MEAN PLATELET VOLUME 8.2 fL (7.4-11.0); MONOCYTES # (AUTO) 0.7 x10^3/uL (0.3-0.8); MONOCYTES % (AUTO) 7.2 % (0.0-13.0); NEUTROPHILS # (AUTO) 4.5 x10^3/uL (2.2-4.8); NEUTROPHILS % (AUTO) 49.1 % (42.0-75.0); PLATELET COUNT 243 X10^3/uL (150.0-450.0); RED BLOOD COUNT 3.75 X10^6/uL (3.5-5.4); RED CELL DISTRIBUTION WIDTH 18.9 % (11.6-16.5); WHITE BLOOD COUNT 9.2 X10^3/uL (3.6-10.0)
[2024-03-15 06:47] LABS: ALANINE AMINOTRANSFERASE 19 Units/L (12-78); ALBUMIN 2.5 g/dL (3.4-5.0); ALKALINE PHOSPHATASE 131 Units/L (46-116); ASPARTATE AMINO TRANSFERASE 33 Units/L (15-37); BLOOD UREA NITROGEN 19 mg/dL (7-18); CALCIUM 8.3 mg/dL (8.5-10.1); CARBON DIOXIDE 30.8 mmol/L (21-32); CHLORIDE 104 mmol/L (98-107); COR CA(FOR HYPOALB) 9.5 mg/dL (8.5-10.1); GLUCOSE 95 mg/dL (65-99); SODIUM 139 mmol/L (136-145); eGFR NON BLACK RACES 52 (>60)
[2024-03-15] MEDS: D5 NS 1,000 ML IV 1,000 ML IV SCH (18:26)
[2024-03-15] MEDS: D5W 1,000 ML IV 1,000 ML IV SCH (23:53)
[2024-03-16] MEDS: D50W ABBOJECT SYR IV ONE (01:31)
[2024-03-16] MEDS: D50W ABBOJECT SYR ONE (01:33)
[2024-03-16 06:28] LABS: BASOPHILS # (AUTO) 0.1 X10^3/uL (0.0-0.1); BASOPHILS % (AUTO) 1.4 % (0.2-1.0); EOSINOPHILS # (AUTO) 1.4 x10^3/uL (0.0-0.2); EOSINOPHILS % (AUTO) 17.4 % (0.9-2.9); HEMATOCRIT 27.3 % (36.0-47.0); HEMOGLOBIN 8.8 g/dL (12.0-16.0); LYMPHOCYTES # (AUTO) 2.5 X10^3/uL (1.3-2.9); LYMPHOCYTES % (AUTO) 31.9 % (21.0-51.0); MEAN CORPUSCULAR HGB CONC 32.3 g/dL (33.0-35.0); MEAN CORPUSCULAR VOLUME 80.5 fL (80.0-100.0); MEAN PLATELET VOLUME 8.9 fL (7.4-11.0); MONOCYTES # (AUTO) 0.5 x10^3/uL (0.3-0.8); MONOCYTES % (AUTO) 6.8 % (0.0-13.0); NEUTROPHILS # (AUTO) 3.4 x10^3/uL (2.2-4.8); NEUTROPHILS % (AUTO) 42.5 % (42.0-75.0); PLATELET COUNT 221 X10^3/uL (150.0-450.0); RED BLOOD COUNT 3.39 X10^6/uL (3.5-5.4); RED CELL DISTRIBUTION WIDTH 18.8 % (11.6-16.5)
[2024-03-16 06:49] LABS: ALANINE AMINOTRANSFERASE 18 Units/L (12-78); ALBUMIN 2.4 g/dL (3.4-5.0); ALKALINE PHOSPHATASE 118 Units/L (46-116); ASPARTATE AMINO TRANSFERASE 33 Units/L (15-37); BLOOD UREA NITROGEN 21 mg/dL (7-18); CALCIUM 8.4 mg/dL (8.5-10.1); CARBON DIOXIDE 32.6 mmol/L (21-32); CHLORIDE 105 mmol/L (98-107); COR CA(FOR HYPOALB) 9.7 mg/dL (8.5-10.1); CREATININE 1.19 mg/dL (0.55-1.02); GLUCOSE 85 mg/dL (65-99); SODIUM 140 mmol/L (136-145); TOTAL PROTEIN 6.5 g/dL (6.4-8.2); eGFR NON BLACK RACES 48 (>60)
[2024-03-16 06:50] LABS: POTASSIUM 4.4 mmol/L (3.5-5.1)
[2024-03-16 06:58] LABS: PLATELET MORPHOLOGY COMMENT NORMAL (NORMAL); WHITE BLOOD COUNT 8.8 X10^3/uL (3.6-10.0)
[2024-03-16] MEDS: TOPROL XL PO SCH (08:40)
[2024-03-16] MEDS: K-DUR TAB 20 MEQ PO ONE (11:14)
[2024-03-16] MEDS: LASIX PO ONE (11:14)
--- NOTE | 2024-03-16 14:58 | RAD ---
EXAM:CHEST x-ray, 1 VIEWHISTORY:sob, ams -COMPARISON:X-ray 03/11/2024FINDINGS:There is CHF and possible mild pulmonary edema. Appearance has likely worsened since prior study. There is diminished inspiration compared to prior study, also. No pneumothorax or pleural effusion is seen.IMPRESSION:CHF and possible mild pulmonary edema has slightly worsened since prior study.THIS IS AN ELECTRONICALLY VERIFIED FINAL REPORT03/16/2024 2:55 PM - Electronically signed by Solo Rocha MD
[2024-03-16] MEDS: VISTARIL PO ONE ×2 (17:45→17:54)
--- NOTE | 2024-03-16 18:11 | EKG ---
Test Reason : BRADYCARDIA Blood Pressure : */* mmHG Vent. Rate : 96 BPM Atrial Rate : 96 BPM P-R Int : 168 ms QRS Dur : 112 ms QT Int : 416 ms P-R-T Axes : * -41 99 degrees QTc Int : 525 ms Sinus rhythm with premature supraventricular complexes and with frequent premature ventricular comple xes with junctional escape complexes Left axis deviation Left ventricular hypertrophy with repolarization abnormality ( R in aVL ) Abnormal ECG No previous ECGs available tremendous artifact present Confirmed by Ghassan Lizarraga MD ([id number]) on 03/17/2024 7:31:00 AM Referred By: Confirmed By: Ghassan Lizarraga MD
[2024-03-17 05:51] LABS: BASOPHILS # (AUTO) 0.1 X10^3/uL (0.0-0.1); BASOPHILS % (AUTO) 0.9 % (0.2-1.0); EOSINOPHILS # (AUTO) 1.7 x10^3/uL (0.0-0.2); EOSINOPHILS % (AUTO) 20.4 % (0.9-2.9); HEMATOCRIT 26.7 % (36.0-47.0); HEMOGLOBIN 8.6 g/dL (12.0-16.0); LYMPHOCYTES # (AUTO) 2.6 X10^3/uL (1.3-2.9); LYMPHOCYTES % (AUTO) 32.3 % (21.0-51.0); MEAN CORPUSCULAR HEMOGLOBIN 25.5 pg (27.0-34.0); MEAN CORPUSCULAR HGB CONC 32.2 g/dL (33.0-35.0); MEAN CORPUSCULAR VOLUME 79.2 fL (80.0-100.0); MEAN PLATELET VOLUME 8.1 fL (7.4-11.0); MONOCYTES # (AUTO) 0.6 x10^3/uL (0.3-0.8); MONOCYTES % (AUTO) 7.3 % (0.0-13.0); NEUTROPHILS # (AUTO) 3.2 x10^3/uL (2.2-4.8); NEUTROPHILS % (AUTO) 39.1 % (42.0-75.0); PLATELET COUNT 246 X10^3/uL (150.0-450.0); RED BLOOD COUNT 3.37 X10^6/uL (3.5-5.4); WHITE BLOOD COUNT 8.1 X10^3/uL (3.6-10.0)
[2024-03-17 06:09] LABS: ALANINE AMINOTRANSFERASE 18 Units/L (12-78); ALBUMIN 2.3 g/dL (3.4-5.0); ALKALINE PHOSPHATASE 113 Units/L (46-116); ASPARTATE AMINO TRANSFERASE 18 Units/L (15-37); BLOOD UREA NITROGEN 19 mg/dL (7-18); CALCIUM 8.5 mg/dL (8.5-10.1); CARBON DIOXIDE 34.3 mmol/L (21-32); CHLORIDE 103 mmol/L (98-107); COR CA(FOR HYPOALB) 9.9 mg/dL (8.5-10.1); GLUCOSE 76 mg/dL (65-99); POTASSIUM 3.9 mmol/L (3.5-5.1); SODIUM 142 mmol/L (136-145); TOTAL PROTEIN 6.4 g/dL (6.4-8.2); eGFR NON BLACK RACES 52 (>60)
[2024-03-17 06:15] LABS: ANISOCYTOSIS SLIGHT; PLATELET MORPHOLOGY COMMENT NORMAL (NORMAL)
[2024-03-17] MEDS: KLONOPIN TAB 1 MG PO PRN (23:06)
--- NOTE | 2024-03-18 07:55 | RAD ---
EXAM:Portable AP chestHISTORY:Short of breathCOMPARISON:03/16/2024FINDINGS:Jordyn lar cardiomegaly, low lung volumes related to habitus, and stable interstitial prominence consistent with mild edema. No evidence for complicating pneumothorax, consolidation or pleural fluid.IMPRESSION:No change.THIS IS AN ELECTRONICALLY VERIFIED FINAL REPORT03/18/2024 7:51 AM - Electronically signed by Rey Montalvo MD
--- NOTE | 2024-03-18 08:41 | PCM.PROG ---
Progress Note Progress Note for Day of Date of Exam: 03/17/24 Subjective Subjective: The patient is alert and awake this morning. She knows who I am but does not know where she is this morning. I called and spoke with her sister who is her primary caregiver and she states that it is very difficult for her to help take care of her. I told her that she would likely eventually need retirement placement but she tells me that she told her sister she would not put her in the retirement. I told patient sister that she is getting better with her UTI and that we had physical therapy to help her ambulate and she is doing that some with assistance. She is able to get to the bathroom and back with the help of a nurse and the patient states she is ready to go home. Told her we will keep her 1 more day for IV antibiotics and discharge her in the morning. Told her we would get a hospital bed for her at home as well as a new wheelchair since the 1 she has now is very flimsy. Past Medical Family Social History Allergies: Allergies lisinopril Allergy (Unknown, Verified 06/06/23 09:24) Reason: Drug allergy Penicillins Allergy (Unknown, Verified 06/06/23 09:24) Reason: Drug allergy tramadol Allergy (Unknown, Verified 06/06/23 09:24) Reason: Drug allergy Review of Systems ROS: No change since H&P Vital Signs and I&O's Vital Signs: Vital Signs Temperature 97.8 F Pulse Rate [Right Brachial] 65 Respiratory Rate 20 Blood Pressure [Left Arm] 176/72 O2 Sat by Pulse Oximetry 93 Intake and Output: Intake & Output 03/15/24 03/16/24 03/17/24 03/18/24 11:59 11:59 11:59 11:59 Intake Total 1510 / 1510 1040 / 1040 1427 / 1427 560 / 560 Output Total 400 / 400 Balance 1510 / 1510 640 / 640 1427 / 1427 560 / 560 Physical Exam Oriented: Normal, Time, Person and Place Eyes: Normal Ear: Normal Nose: Normal Throat: Normal Respiratory: Normal Cardiovascular: Normal : Normal Auscultation: Bowel Sounds: Normal Tenderness: Normal Skin: Normal Musculoskeletal: Normal Psychiatric: Normal Mood Description: Calm Affect: Normal Speech Pattern: Clear and Appropriate Laboratory and Diagnostics 03/17/24 05:03 03/17/24 05:03 Labs: 03/11/24 15:29 Urine,Catheterized Urine Culture - Final Escherichia Coli Laboratory WBC 8.1 X10^3/uL (3.6-10.0) 03/17/24 05:03 RBC 3.37 X10^6/uL (3.5-5.4) L 03/17/24 05:03 Hgb 8.6 g/dL (12.0-16.0) L 03/17/24 05:03 Hct 26.7 % (36.0-47.0) L 03/17/24 05:03 MCV 79.2 fL (80.0-100.0) L 03/17/24 05:03 MCH 25.5 pg (27.0-34.0) L 03/17/24 05:03 MCHC 32.2 g/dL (33.0-35.0) L 03/17/24 05:03 RDW 19.0 % (11.6-16.5) H 03/17/24 05:03 Plt Count 246 X10^3/uL (150.0-450.0) 03/17/24 05:03 Plt Count Comment Adequate (ADEQUATE) 03/17/24 05:03 MPV 8.1 fL (7.4-11.0) 03/17/24 05:03 Neut % (Auto) 39.1 % (42.0-75.0) L 03/17/24 05:03 Lymph % (Auto) 32.3 % (21.0-51.0) 03/17/24 05:03 [place] % (Auto) 7.3 % (0.0-13.0) 03/17/24 05:03 Eos % (Auto) 20.4 % (0.9-2.9) H 03/17/24 05:03 Baso % (Auto) 0.9 % (0.2-1.0) 03/17/24 05:03 Neut # (Auto) 3.2 x10^3/uL (2.2-4.8) 03/17/24 05:03 Lymph # (Auto) 2.6 X10^3/uL (1.3-2.9) 03/17/24 05:03 [place] # (Auto) 0.6 x10^3/uL (0.3-0.8) 03/17/24 05:03 Eos # (Auto) 1.7 x10^3/uL (0.0-0.2) H 03/17/24 05:03 Baso # (Auto) 0.1 X10^3/uL (0.0-0.1) 03/17/24 05:03 Absolute Nucleated RBC 0.0 /100WBC 03/17/24 05:03 Total Counted 100 03/17/24 05:03 Neutrophils % (Manual) 41 % (39-76) 03/17/24 05:03 Lymphocytes % (Manual) 36 % (13-43) 03/17/24 05:03 Monocytes % (Manual) 3 % (4-9) L 03/17/24 05:03 Eosinophils % (Manual) 20 % (0-6) H 03/17/24 05:03 Plt Morphology Comment Normal (NORMAL) 03/17/24 05:03 RBC Morphology Abnormal (NORMAL) A 03/17/24 05:03 Anisocytosis Slight A 03/17/24 05:03 Sodium 142 mmol/L (136-145) 03/17/24 05:03 Corrected Sodium TNP 03/17/24 05:03 Potassium 3.9 mmol/L (3.5-5.1) 03/17/24 05:03 Chloride 103 mmol/L (98-107) 03/17/24 05:03 Carbon Dioxide 34.3 mmol/L (21-32) H 03/17/24 05:03 BUN 19 mg/dL (7-18) H 03/17/24 05:03 Creatinine 1.10 mg/dL (0.55-1.02) H 03/17/24 05:03 Est GFR (MDRD) Af Amer > 60 (>60) 03/17/24 05:03 Est GFR (MDRD) Non-Af 52 (>60) L 03/17/24 05:03 Glucose 76 mg/dL (65-99) 03/17/24 05:03 POC Glucose (mg/dL) 83 mg/dL (65-99) 03/18/24 05:40 Calcium 8.5 mg/dL (8.5-10.1) 03/17/24 05:03 Corrected Calcium 9.9 mg/dL (8.5-10.1) 03/17/24 05:03 Magnesium 2.1 mg/dL (2.0-2.9) 03/15/24 06:13 Total Bilirubin 0.40 mg/dL (0.2-1.0) 03/17/24 05:03 AST 18 Units/L (15-37) 03/17/24 05:03 ALT 18 Units/L (12-78) 03/17/24 05:03 Alkaline Phosphatase 113 Units/L (46-116) 03/17/24 05:03 Creatine Kinase 101 Units/L (26-192) 03/11/24 15:30 Troponin I High Sens 12.8 ng/L (4.0-60.0) 03/11/24 15: Total Protein 6.4 g/dL (6.4-8.2) 03/17/24 05:03 Albumin 2.3 g/dL (3.4-5.0) L 03/17/24 05:03 Globulin 4.1 g/dL (2.5-4.5) 03/17/24 05:03 Albumin/Globulin Ratio 0.6 Ratio (1.1-2.1) L 03/17/24 05:03 Lipase 24 Units/L (16-77) 03/11/24 15:30 TSH 3rd Generation 1.827 uIU/mL (0.358-3.74) 03/11/24 15:30 Specimen Type Catherized urine 03/11/24 15:29 Urine Color Yellow (YELLOW) 03/11/24 15: Urine Appearance Hazy (CLEAR) 03/11/24 15: Urine pH 6.0 (5.0 - 8.0) 03/11/24 15:29 Ur Specific [place] 1.015 (1.000-1.030) 03/11/24 15: Urine Protein 2+ (NEGATIVE) 03/11/24 15: Urine Glucose (UA) Negative (NEGATIVE) 03/11/24 15: Urine Ketones Negative (NEGATIVE) 03/11/24 15: Urine Blood 1+ (NEGATIVE) 03/11/24 15: Urine Nitrite Positive (NEGATIVE) 03/11/24 15: Urine Bilirubin Negative (NEGATIVE) 03/11/24 15: Urine Urobilinogen Normal (NORMAL) 03/11/24 15: Ur Leukocyte Esterase 1+ (NEGATIVE) 03/11/24 15: Urine RBC 3-5 /HPF (0-3) A 03/11/24 15: Urine WBC 30-50 /HPF (0-5) A 03/11/24 15: Ur Squamous Epith Cells Few /HPF (NEGATIVE) 03/11/24 15: Urine Bacteria 3+ /HPF (NEGATIVE) 03/11/24 15: Ur Culture Indicated? Yes/culture set up 03/11/24 15: Urine Opiates Screen Positive (NEG=<300) A 03/11/24 15: Urine Methadone Screen Negative (NEG=<300) 03/11/24 15: Ur Barbiturates Screen Negative (NEG=<200) 03/11/24 15: Ur Phencyclidine Scrn Negative (NEG=<25) 03/11/24 15: Ur Amphetamines Screen Negative (NEG=<1000) 03/11/24: U Benzodiazepines Scrn Negative (NEG=<200) 03/11/24: Urine Cocaine Screen Negative (NEG=<300) 03/11/24: U Marijuana (THC) Screen Negative (NEG=<50) 03/11/24 15: Blood Type A POSITIVE 03/13/24 08:50 Antibody Screen Negative 03/13/24 08:50 Crossmatch See Detail 03/13/24 08:50 Radiology Reviewed: Yes Plan (1) Dehydration: Status: Acute Plan: Slow IV hydration. (2) Acute UTI: Status: Acute Plan: IV Rocephin. Follow-up with urine culture and sensitivity report when available. Change antibiotics accordingly if needed. (3) Altered mental status: Status: Resolved Plan: Monitor for improvement with IV hydration and treatment of the urinary tract infection. CT of the head was negative. (4) Insulin dependent type 2 diabetes mellitus: Status: None Plan: Sliding scale regular insulin per protocol (5) Anemia: Status: Acute Plan: Transfused 2 units of packed red blood cells today. Check hemoglobin after transfusion. Premedicate patient with Benadryl and Tylenol to prevent transfusion reaction prior to transfusion. (6) Dementia: Status: Acute
[2024-03-18 09:26] LABS: BASOPHILS # (AUTO) 0.2 X10^3/uL (0.0-0.1); BASOPHILS % (AUTO) 1.4 % (0.2-1.0); EOSINOPHILS # (AUTO) 1.9 x10^3/uL (0.0-0.2); EOSINOPHILS % (AUTO) 15.9 % (0.9-2.9); HEMATOCRIT 28.7 % (36.0-47.0); HEMOGLOBIN 8.9 g/dL (12.0-16.0); LYMPHOCYTES # (AUTO) 2.9 X10^3/uL (1.3-2.9); LYMPHOCYTES % (AUTO) 24.1 % (21.0-51.0); MEAN CORPUSCULAR HEMOGLOBIN 25.2 pg (27.0-34.0); MEAN CORPUSCULAR HGB CONC 31.2 g/dL (33.0-35.0); MEAN CORPUSCULAR VOLUME 80.7 fL (80.0-100.0); MEAN PLATELET VOLUME 8.5 fL (7.4-11.0); MONOCYTES # (AUTO) 0.7 x10^3/uL (0.3-0.8); NEUTROPHILS # (AUTO) 6.3 x10^3/uL (2.2-4.8); NEUTROPHILS % (AUTO) 52.6 % (42.0-75.0); PLATELET COUNT 252 X10^3/uL (150.0-450.0); RED BLOOD COUNT 3.55 X10^6/uL (3.5-5.4); RED CELL DISTRIBUTION WIDTH 18.9 % (11.6-16.5)
[2024-03-18 09:43] LABS: PLATELET MORPHOLOGY COMMENT NORMAL (NORMAL)
[2024-03-18 09:46] LABS: HYPOCHROMASIA SLIGHT; STOMATOCYTES SLIGHT
[2024-03-18 09:53] LABS: ALANINE AMINOTRANSFERASE 19 Units/L (12-78); ALBUMIN 2.5 g/dL (3.4-5.0); ALKALINE PHOSPHATASE 115 Units/L (46-116); ASPARTATE AMINO TRANSFERASE 21 Units/L (15-37); BLOOD UREA NITROGEN 15 mg/dL (7-18); CALCIUM 8.7 mg/dL (8.5-10.1); CARBON DIOXIDE 31.5 mmol/L (21-32); CHLORIDE 104 mmol/L (98-107); COR CA(FOR HYPOALB) 9.9 mg/dL (8.5-10.1); CREATININE 1.07 mg/dL (0.55-1.02); GLUCOSE 83 mg/dL (65-99); POTASSIUM 3.7 mmol/L (3.5-5.1); SODIUM 142 mmol/L (136-145); TOTAL PROTEIN 6.8 g/dL (6.4-8.2); eGFR NON BLACK RACES 54 (>60)
[2024-03-18 11:54] VITALS: TEMP 98.1
[2024-03-18 17:44] VITALS: BP 158/70; PULSE 74; RESP 20; O2SAT 96
== END 2024-03-18 17:15 | disposition home health service (06) ==
LOC: ER 14:42 → MED/SURG 14:42 → ICU 14:42 → MED/SURG 17:07
PROVIDERS: ADMIT Family Medicine; ATTEND Family Medicine
DX: N39.0 Urinary tract infection, site not specified; R26.89 Other abnormalities of gait and mobility; F03.90 Unspecified dementia, unspecified severity, without behavioral disturbance, psychotic disturbance, mood disturbance, and anxiety; R41.82 Altered mental status, unspecified; D64.89 Other specified anemias; E11.65 Type 2 diabetes mellitus with hyperglycemia; M25.551 Pain in right hip; Z91.81 History of falling; R94.31 Abnormal electrocardiogram [ECG] [EKG]; R00.1 Bradycardia, unspecified; B96.29 Other Escherichia coli [E. coli] as the cause of diseases classified elsewhere; E86.0 Dehydration; E83.42 Hypomagnesemia; Z79.4 Long term (current) use of insulin